=== PATIENT | female | born 1950 | race Caucasian/White ===

== ENCOUNTER 2018-12-11 09:25 | Inpatient (IN) | payer OTHER ==
[~2018-12-11] VITALS: Ht 152.4 cm; Wt 71.4 kg
[2018-12-11 09:26] VITALS: BP 120/81
[2018-12-11] MEDS ORDERED: ZOLOFT50 M1 PO (10:24)
[2018-12-11] MEDS ORDERED: BUSPIRONE HCL10 MG PO (10:25)
[2018-12-11] MEDS ORDERED: K-DUR 20 MEQ T20 MEQ PO (10:27)
[2018-12-11] MEDS ORDERED: BUMEX2 MG PO (10:27)
[2018-12-11] MEDS ORDERED: NORCO 5-325 TA1 EAC1 PO (10:28)
[2018-12-11] MEDS ORDERED: VITAMINC500 PO (10:30)
[2018-12-11] MEDS ORDERED: UNICOMPLEX M TA1 TA1 PO (10:30)
[2018-12-11] MEDS ORDERED: ASPIR 8181 MG PO (10:31)
[2018-12-11] MEDS ORDERED: COENZYME Q-1030 MG PO (10:32)
[2018-12-11] MEDS ORDERED: SIMVASTATIN80 MG PO (10:32)
[2018-12-11] MEDS ORDERED: BRILINTA90 MG PO (10:33)
[2018-12-11] MEDS ORDERED: ZETIA10 MG PO (10:33)
[2018-12-11 12:23] LABS: ABSOLUTE NEUTROPHILS 8.2 thou/uL (1.4-8.2); BASOPHILS 0.9 % (0.0-2.0); EOSINOPHILS 1.8 % (0.0-3.0); HEMATOCRIT 32.9 % (37.0-47.0); HEMOGLOBIN 10.8 gm/dL (12.0-15.0); LYMPHOCYTES 8.1 % (24.0-44.0); MCH 31.2 pg (26.0-34.0); MCHC 32.8 g/dL (28.0-37.0); MCV 95.2 fL (80.0-100.0); MONOCYTES 6.2 % (1.0-8.0); PLATELET COUNT 250 thou/uL (150-400); RBC 3.45 mil/uL (4.20-5.00); WBC 9.8 thou/uL (4.0-11.0)
[2018-12-11 12:33] LABS: CALCIUM 8.5 mg/dL (8.5-10.1); CREATININE 0.8 mg/dL (0.6-1.0); POTASSIUM 3.7 mmol/L (3.5-5.1)
[2018-12-11 12:36] LABS: APTT 40.7 Seconds (24.5-32.8); INR 1.1; PROTIME 11.6 Seconds (9.3-11.4)
[2018-12-11 12:39] LABS: ALBUMIN 1.9 g/dL (3.4-5.0); TOTAL BILIRUBIN 0.4 mg/dL (<0.1-1.0); TOTAL PROTEIN 6.1 g/dL (6.4-8.2)
[2018-12-11 12:44] LABS: URINE BILIRUBIN NEGATIVE (Negative); URINE BLOOD 3+ (Negative); URINE CLARITY CLOUDY; URINE COLOR YELLOW; URINE GLUCOSE-RANDOM* NEGATIVE (Negative); URINE KETONES TRACE (Negative); URINE LEUKOCYTES 2+ (Negative); URINE NITRITE NEGATIVE (Negative); URINE PROTEIN (DIPSTICK) 3+ (Negative); URINE SPECIFIC GRAVITY 1.025 (1.005-1.035); URINE UROBILINOGEN 0.2 E.U./dl (0.2-1.0)
[2018-12-11 12:50] LABS: YEAST Present (None Seen)
[2018-12-11 12:51] LABS: BACTERIA 1-9 Few /HPF (None Seen); CRYSTALS None Seen /LPF (None Seen); HYALINE CASTS 0-3 Few /LPF (None Seen); SQUAMOUS 0-3 Few /LPF (0-3); URINE RBC 3-10 Few /HPF (0-2)
[2018-12-11 15:03] VITALS: BP 127/87
[2018-12-11 15:47] VITALS: BP 136/91
[2018-12-11 20:00] VITALS: BP 131/86
--- NOTE | 2018-12-11 20:08 | NUR ---
Assumed care of pt at approximately 1715. Pt arrived from ED where she presented this morning with complaints of extended constipation and abdominal pain. Pt had bloody stool while in ED preparing for DC. DC was postponed and pt went for abdominal CT which showed fecal impaction with possible proctitis. Pt does complain of severe rectal pain that ranges from 5-10/10, depending on movement and positioning. On assessment pt had bloody stool intermittantly oozing out. Incontinent of bowel. Hernandez in place prior to admit. Pt's son has been at bedside and has good grasp of hospitalization hx prior to admit here. (Pt was at [facility] in [place] for approx. 1 month prior.) Pt is not yet progressing toward POC goals. Will continue to monitor and assess.
[2018-12-11 21:51] LABS: HEMATOCRIT 30.2 % (37.0-47.0); HEMOGLOBIN 9.9 gm/dL (12.0-15.0)
[2018-12-12] VITALS (7 sets, daily range): BP systolic 94–120; BP diastolic 60–81
[2018-12-12 05:49] LABS: HEMATOCRIT 29.5 % (37.0-47.0); HEMOGLOBIN 9.9 gm/dL (12.0-15.0); MCHC 33.5 g/dL (28.0-37.0); MCV 95.3 fL (80.0-100.0); PLATELET COUNT 229 thou/uL (150-400); RBC 3.09 mil/uL (4.20-5.00); RDW 21.7 % (10.5-14.5); WBC 9.3 thou/uL (4.0-11.0)
[2018-12-12 06:16] LABS: CREATININE 0.8 mg/dL (0.6-1.0); MAGNESIUM 2.4 mg/dL (1.8-2.4); POTASSIUM 3.5 mmol/L (3.5-5.1)
[2018-12-12 06:20] LABS: TROPONIN-I 0.8 ng/mL (<0.06)
[2018-12-12 06:46] LABS: ABSOLUTE NEUTROPHILS 7.9 thou/uL (1.4-8.2); ANISOCYTOSIS 2+; METAMYELOCYTES 1 %; POIKILOCYTOSIS 1+
[2018-12-12 06:47] LABS: PLATELET ESTIMATE NORMAL; POLYCHROMASIA 1+
--- NOTE | 2018-12-12 07:42 | NUR ---
PATIENT IS ALERT AND ORIENTED. PATIENT IS UP TIMES TWO PIVOT DUE TO WEAKNESS. PATIENTS PAIN IS TREATED WITH PAIN MEDICAITON. PATIENT HAS A RT PICC IV TEAM CONSULTED. PATIENT WAS ABLE TO GET ALL BUT 700ML OF THE MIRALAX DOWN. PATIENT HAD 3 SMALL BLOOD CLOTTED BM. PATEINT HAS LOTS OF PAIN IS RECTUM. PATIENT TROPONIN HAS ELEVATED OVER THE SHIFT. PROVIDER AWARE. PATIENT IS ST ON TELE. RATE IMPROVED WITH METOPROLOL. PATIENT IS ACHS ACCUCHECKS. PATIENT HAS BEEN NPO SENSE. MIDNIGHT. PATIENT IS PENDING FLEXSIG THIS AM. PATIENT IS IMPACTED. DIDGITAL REMOVAL WAS ATTEMPTED WITH SOME SUCCESS BUT PATIENT WAS UNABLE TO TOLERATE. JASSON HAS A CHRONIC GIRON FROM THE SNF IN [place], [place]. PATIENT CURRENTLY LIVE WITH SON WHOM IS DPOA. PATIENT HAS DIABETIC WOUNDS ON BILATERAL SHINS THAT WERE JUST DEBRIDED November. DRESSINGS CHANGE WOUND CARE CONSULTED. CULTURES SENT TO LAB ANTIBIOTICS STARTED. PATIENT IS RESTING COMFORTABLY IN BED. WCM. PATIENT IS PROGRESSING TO GOALS.
--- NOTE | 2018-12-12 09:38 | 2DMMODE ---
[facility] [address] [place] [address] 2 D/M-MODE ECHOCARDIOGRAM Name: KETURAHFARRUKH Room #: 359-P [facility] IN .R.#: [id number] ������������� Admission: 12/11/18 ������������� Attend Phys: Wallace Aguilar, Discharge: ��� ������������� ��� Date of : 48 Date of Service: 12/12/18 0938 �� Report #: [id number] �������� ��������������������������������������������[id number] THIS REPORT FOR: //name// APPROVED REPORT Study performed: 12/12/2018 08:04:35 EXAM: Comprehensive 2D, Doppler, and color-flow Echocardiogram Patient Location: Bedside Room #: 359 Status: routine BSA: 1.70 HR: 113 bpm BP: 116/75 mmHg Rhythm: Tachycardia Other Information Study Quality: Good Indications Atrial tachycarida. (Heart rate ranged from 80's to 150's during echo) Hx: MD, CABG, stent, PVD, Afib, DM, HTN, HLP. 2D Dimensions RVDd: 39.24 mm IVSd: 12.00 (7-11mm) LVOT Diam: 19.12 (18-24mm) LVDd: 57.55 mm PWd: 11.00 (7-11mm) Ascending Ao: 32.13 (22-36mm) LVDs: 47.17 (25-40mm) Aortic Root: 30.39 mm Volumes Left Atrial Volume (Systole) Single Plane 4CH: 70.65 mL Single Plane 2CH: 92.01 mL LA ESV Index: 50.00 mL/m2 Aortic Valve AoV Peak Collin.: 1.16 m/s AO Peak Gr.: 5.39 mmHg LVOT Max P.08 mmHg LVOT Max V: 0.88 m/s GENARO Vmax: 2.17 cm2 Mitral Valve MV Decel. Time: 124.30 ms [facility] [place] [address] 2 D/M-MODE ECHOCARDIOGRAM Name: REBOLLARFARRUKH Room #: 359-P [facility] IN .R.#: [id number] ������������� Admission: 12/11/18 ������������� Attend Phys: Wallace Aguilar, Discharge: ��� ������������� ��� Date of : 48 Date of Service: 12/12/18 0938 �� Report #: [id number] �������� ��������������������������������������������[id number] MV E Max Collin.: 1.38 m/s Pulmonary Valve PV Peak Collin.: 0.57 m/s PV Peak Gr.: 1.28 mmHg Tricuspid Valve TR Peak Collin.: 3.58 m/s RAP Estimate: 10.00 mmHg TR Peak Gr.: 51.15 mmHg PA Pressure: 61.00 mmHg Left Ventricle Left ventricle is at the upper limits of normal. Regional wall motion abnormalities are noted. There is hypokinesis of the mid to basal inferolateral segment. Mild concentric left ventricular hypertrophy. Left ventricular systolic function is moderately decreased. LVEF is 35-40%. This study is not technically sufficient to allow evaluation of the LV diastolic function. Right Ventricle The right ventricle is normal size. Atria Left atrium is severely dilated. Right atrium is mildly dilated. Aortic Valve Aortic valve is thickened and calcified but has adequate excursion. No aortic regurgitation is present. Mitral Valve Mitral valve leaflets are mildly thickened and calcified. Moderate mitral annular calcification. Moderate to severe mitral regurgitation Tricuspid Valve The tricuspid valve is normal in structure. Moderate tricuspid regurgitation. Estimated PAP is 60mmHg. Pulmonic Valve The pulmonary valve is normal in structure. Mild pulmonic regurgitation. Great Vessels The aortic root is normal in size. The ascending aorta is normal in size. IVC is normal in size and collapses <50% with inspiration. [facility] [address] [place] [address] 2 D/M-MODE ECHOCARDIOGRAM Name: KETURAHFARRUKH Room #: 359-P [facility] IN M.R.#: [id number] ������������� Admission: 12/11/18 ������������� Attend Phys: Wallace Aguilar, Discharge: ��� ������������� ��� Date of : 48 Date of Service: 12/12/18 0938 �� Report #: [id number] �������� ��������������������������������������������[id number] Pericardium There is no pericardial effusion. <Conclusion> Left ventricle is at the upper limits of normal. Mild concentric left ventricular hypertrophy. Left ventricular systolic function is moderately decreased. Regional wall motion abnormalities are noted. The right ventricle is normal size. Left atrium is severely dilated. Right atrium is mildly dilated. Aortic valve is thickened and calcified but has adequate excursion. Mitral valve leaflets are mildly thickened and calcified. Moderate mitral annular calcification. Moderate to severe mitral regurgitation Moderate tricuspid regurgitation. Estimated PAP is 60mmHg. ��������������������������������������������� <ELECTRONICALLY SIGNED> ���������������������������������������� By: Oli Jarquin MD ��������������������������������������������� 12/12/18937 7 7 Oli Jarquin MD /INF
--- NOTE | 2018-12-12 11:46 | NUR ---
Nutrition: Usual diet per son is mechanically altered ground due to poor dentition.
--- NOTE | 2018-12-12 13:56 | NUR ---
ASSESSMENT: CM REVIEWED CHART AND MET WITH PATIENT AT THE BEDSIDE. PT REPORTS SHE LIVES IN A [place] IN [facility] BUT IS PLANNING ON MOVING IN WITH HER SON EZRA WHO LIVES IN . SHE STATES HE HAS NO STEPS COMING IN THROUGH THE [place] AND HAS A FINSHED BASEMENT WITH BEDROOM WHERE SHE WOULD BE STAYING. SHE REPORTS SHE AMBULATES INDEPENDENTLY. CM SPOKE WITH SON EZRA TO VERIFY INFORMATION. HE STATES THAT THEY WERE IN THE PROCESS OF MOVING ALL OF [place] TH[place] THIS [place]. HE STATES HE WAS ESTABLISHING HER A PCP AT [facility] AND ALREADY HAS AN APPT AND WAS FOLLOWING UP WITH DR. HUNG OFFICE WELL. HE STATES HE WAS SUPPOSED TO MEET WITH [facility] TODAY. CM NOTIFIED [facility] OF REFERRAL AND TO FOLLOW PATIENT. PLANS ARE FOR PATIENT TO RETURN HOME WITH HH ([facility]) AT DISCHARGE. CM WILL CONTINUE TO FOLLOW TO ASSIST NEEDED.
--- NOTE | 2018-12-12 15:59 | NUR ---
PT HAD A FLEX SIG THIS MORN AND WAS VERY IMPACTED..SHE FELT MUCH BETTER AFTER PROCEDURE...SHE WAS GIVEN MAG CITRATE AFTER PROCEDURE WITH GOOD RESULTS OBTAINED..
[2018-12-13 03:45] VITALS: BP 119/83
--- NOTE | 2018-12-13 04:13 | NUR ---
PATIENT IS ALERT AND ORIENTED. PATIENT IS UP TIMES 2. PATIENT IS WEAK TIPICALLY INCONTIENT DUE TO LAXITIVES. LBM WAS THE 13TH. PATIENT HAS A CHRONIC GIRON FROM THE FACILITY. PATIENT IS ACHS ACCUCHECKS. PATIENT HAS AN EF OF 25-30% PER ECHO COMPLETED YESTERDAY. PATIENT TROP IS STILL ELEVATED PENIDNG MORNING LABS. PATIENT ST ON TELE. PATIENT STARTED ON PROTONIX PER PROVIDER. PATIENT REFUSED BATH WAS TO TIRED FROM BUSY DAY. PATIENT IS RESTING COMFORTABLY IN BED. PATIENT DENIES PAIN. WCM. PATIENT IS PROGESSING TO GOALS.
--- NOTE | 2018-12-13 06:15 | NUR ---
PROVIDER AWARE OF LOW URINE OUTPUT NO ORDERS RECIVED
[2018-12-13 07:31] VITALS: BP 112/71
--- NOTE | 2018-12-13 10:47 | EKG ---
[place] [address] [address] [address] ELECTROCARDIOGRAM REPORT Name: REBOLLARFARRUKH Room #: 359-P ADM IN M.R.#: [id number] ������������������ Admission: 12/11/18 ������������������ Attend Phys: Wallace Aguilar MD Discharge: ������������������ Date of : 48 Report #: [id number] ����������������������������������������������������������������� [id number] THIS REPORT FOR: //name// [facility] ED Test Date: 2018-12-11 Test Time: 15:03:52 Pat Name: FARRUKH REBOLLAR Department: Room: [facility] Gender: F Acute Dialysis Registered Nurse: : 1950 Requested By: Leigh Ann Alfaro Order Number: [id number] MD: Rey Juarez Measurements Intervals [place]s Rate: 123 P: -72 MO: 106 QRS: -11 QRSD: 117 T: 192 QT: 307 QTc: 439 Interpretive Statements Sinus or ectopic atrial tachycardia Atrial premature complex Incomplete left bundle branch block No previous ECG available for comparison Electronically Signed On 12-13-2018 10:47:18 CDT by Rey Juarez [email or web address] ��������������������������������������������� <ELECTRONICALLY SIGNED> ���������������������������������������� By: Rey Juarez MD, LOCATED WITHIN [facility] ��������������������������������������������� 12/13/18 1047 1503 1503 Rey Juarez MD, [facility] /EPI
[2018-12-13 17:08] VITALS: BP 124/85
[2018-12-13 20:00] VITALS: BP 116/79
--- NOTE | 2018-12-14 03:06 | NUR ---
PATIENT IS PROGRESSING IN HER CARE PLAN. VITAL SIGNS STABLE WITH PATIENT HAVING NO COMPLAINTS OF PAIN OR NAUSEA. FULLY ORIENTED, PATIENT IS ABLE TO PARTICIPATE IN CARE AND CALL APPROPRIATELY FOR NEEDS. PATIENT HAS HAD MULTIPLE EPISODES OF FECAL INCONTINENCE REQUIRING CLEAN UP AND SKIN CARE. FREQUENT TURNS PROVIDED. LOW OUTPUT THROUGH CATHETER WITH NURSE TO BLADDER SCAN EARLY THIS MORNING TO CHECK FOR RETENTION. CONTINUE PLAN OF CARE.
[2018-12-14 04:00] VITALS: BP 126/85
[2018-12-14 04:43] LABS: HEMATOCRIT 30.1 % (37.0-47.0); HEMOGLOBIN 9.8 gm/dL (12.0-15.0); MCHC 32.7 g/dL (28.0-37.0); RBC 3.16 mil/uL (4.20-5.00); WBC 7.9 thou/uL (4.0-11.0)
[2018-12-14 05:02] LABS: CALCIUM 7.8 mg/dL (8.5-10.1); CREATININE 0.8 mg/dL (0.6-1.0); MAGNESIUM 2.2 mg/dL (1.8-2.4); POTASSIUM 4.5 mmol/L (3.5-5.1)
[2018-12-14 08:16] VITALS: BP 125/87
[2018-12-14 12:43] LABS: % SATURATION 30 % (20-39); IRON 50 ug/dL (50-170); TIBC 164 ug/dL (250-450)
--- NOTE | 2018-12-14 12:48 | HC ---
[facility] [place] [address] [address] CONSULTATION Name: AFRRUKH REBOLLAR Room #: 359-P ADM IN M.R.#: [id number] Admission: 12/11/18 ������������������ Attend Phys: Wallace Aguilar MD Discharge: ������������������ Date of : 48 Report #: [id number] THIS REPORT FOR: //name// CC: FAM unknown Wallace Aguilar DATE OF SERVICE: 12/13/2018 ENDOCRINE CONSULTATION LOCATION: Room 359. Patient of Dr. Aguilar. A 68-year-old white female admitted for GI bleed and constipation. Historically, the patient states she was told of hypothyroidism approximately 1 year ago and begun on increasing doses of L-Thyroxine, 6 months ago was increased to 125 mcg per day. The patient is not aware of any thyroid function studies since that time and has not been told whether her tests were normal. The patient has no current signs or symptoms of thyroid disease except for her GI distress. She has no known family history of thyroid problems. She has been taking her medication correctly without conflicting concurrent medications. Otherwise, there is no pertinent endocrine history to report at this time. LABORATORY DATA: From her recent labs, free T4 is 1.2 and TSH 14. PHYSICAL EXAMINATION: GENERAL: A thin 68-year-old white female, in no acute distress. The patient is alert and oriented x 3. VITAL SIGNS: Height is reported to be 5 feet 2 inches or 5 feet 1 inch, weight 161 pounds, heart rate 110, blood pressure 112/71. SKIN: Somewhat thin and doughy. Deep tendon reflexes are 2+ and equal. The thyroid is slightly enlarged on the left. It has a smooth contour and moves well with deglutition. There is no nodularity or adenopathy present. The remainder of the exam is euthyroid. ASSESSMENT: Hypothyroidism, on inadequate replacement. It is, however, unlikely that this contributed to the patient's current gastrointestinal distress and fecal impaction as the actual free T4 level in the blood is still within normal limits. PLAN: 1. I have discussed all of the above with the patient and her son. 2. We will increase replacement to 150 mcg per day and again ensured it is not given concurrently with potentially conflicting substances. 3. Reassessment of thyroid function levels will need to be done in [address] [address] CONSULTATION Name: FARRUKH REBOLLAR Room #: 359-P [facility] IN M.R.#: [id number] Admission: 12/11/18 ������������������ Attend Phys: Wallace Aguilra MD Discharge: ������������������ Date of : 48 Report #: [id number] approximately 6 weeks from dosage readjustment; however, interim levels may be checked to ensure that the medication level is changing appropriately. Thank you very much for this consultation. I will continue to follow the patient with you for management of thyroid disease. ��������������������������������������������� <ELECTRONICALLY SIGNED> ���������������������������������������� By: Matthieu Pozo MD ��������������������������������������������� 12/14/18 1248 1331 1928 Matthieu Pozo MD /bradly
[2018-12-14 13:11] LABS: FOLIC ACID 10.4 ng/mL (8.6-58.9)
[2018-12-14 15:21] VITALS: BP 106/58
[2018-12-14 16:46] VITALS: BP 81/52
--- NOTE | 2018-12-14 19:19 | NUR ---
PATIENT CONT TO REST IN BED AT THIS TIME. HAD DIARRHEAL STOOLS FOUR TIMES TODAY. SHE IS NOW SLEEPING.. WILL CONT WITH PLAN OF CARE.
[2018-12-14 19:33] VITALS: BP 95/59
[2018-12-15 03:01] VITALS: BP 105/70
--- NOTE | 2018-12-15 04:58 | NUR ---
PATIENT IS PROGRESSING IN HER CARE PLAN. VITAL SIGNS STABLE WITH PATIENT HAVING NO COMPLAINTS OF PAIN OR NAUSEA. FULLY ORIENTED, PATIENT IS ABLE TO PARTICIPATE IN CARE AND CALL EFFECTIVELY FOR NEEDS. PATIENT HAS HAD MULTIPLE EPISODES OF FECAL INCONTINENCE REQUIRING SKIN CARE. FREQUENTLY TURNED WITH BARRIER CREAM APPLIED. NO EVIDENCE OF BLEEDING NOTED. CONTINUE PLAN OF CARE.
[2018-12-15 05:32] LABS: HEMATOCRIT 32.5 % (37.0-47.0); HEMOGLOBIN 10.7 gm/dL (12.0-15.0); MCH 31.5 pg (26.0-34.0); MCHC 32.9 g/dL (28.0-37.0); MCV 95.7 fL (80.0-100.0); RBC 3.4 mil/uL (4.20-5.00); RDW 21.4 % (10.5-14.5); WBC 8.6 thou/uL (4.0-11.0)
[2018-12-15 05:54] LABS: CALCIUM 8.5 mg/dL (8.5-10.1); CREATININE 0.8 mg/dL (0.6-1.0); POTASSIUM 4.6 mmol/L (3.5-5.1)
--- NOTE | 2018-12-15 07:44 | HC ---
[facility] [address] [address] CONSULTATION Name: FARRUKH REBOLLAR Room #: 359-P ADM IN M.R.#: [id number] Admission: 12/11/18 ������������������ Attend Phys: Wallace Aguilar MD Discharge: ������������������ Date of : 48 Report #: [id number] THIS REPORT FOR: //name// CC: FAM unknown Wallace Aguilar DATE OF SERVICE: 12/12/2018 CHIEF COMPLAINT: Bilateral lower extremity ulcerations. HISTORY OF PRESENT ILLNESS: This is a 68-year-old female patient who was admitted to the hospital through the Emergency Department of lower abdominal pain and severe constipation. Additionally, she has had chronic ulcerations to her lower legs, has been followed and treated in [place], [place], has recently transferred to [place]. She was scheduled to see us in the wound clinic, but due to her abdominal pain, she was taken to the Emergency Department, and admitted to the hospital. I have been asked to see with regard to wound care. The patient has a history of peripheral arterial disease. She has undergone angiography with stent placement. The exact details of her anatomy are unknown at this time. The patient states that she previously had had a lot of pain in her legs, but that has improved, and she has had some debridement performed and things have been improving slowly. PAST MEDICAL HISTORY: Positive for type 2 diabetes mellitus, atrial fibrillation, congestive heart failure, anxiety, lower extremity cellulitis, coronary artery disease, and peripheral vascular disease. SOCIAL HISTORY: The patient is a former smoker. Admits to occasional alcohol use. FAMILY HISTORY: Noncontributory. MEDICATIONS: The patient's current medications include K-Dur, Zoloft, BuSpar, Bumex, [place], vitamin C, aspirin, Coenzyme Q10, Zetia, and Brilinta. ALLERGIES: PENICILLIN AND ARTIFICIAL SWEETENER. REVIEW OF SYSTEMS: CONSTITUTIONAL: The patient denies fever, chills, or weight loss. NEUROLOGICAL: The patient complains of generalized weakness and inability to walk due to generalized weakness, but denies any focal weakness, numbness, or tingling. EYES: The patient denies visual changes, redness, or drainage. ENT: The patient denies earache, nasal drainage, sore throat. CARDIOVASCULAR: The patient denies chest pain, palpitation, or diaphoresis. PULMONARY: The patient denies cough or shortness of breath. [address] [address] CONSULTATION Name: FARRUKH REBOLLAR Room #: 359-P [facility] IN .R.#: [id number] Admission: 12/11/18 ������������������ Attend Phys: Wallace Aguilar MD Discharge: ������������������ Date of : 48 Report #: [id number] GASTROINTESTINAL: The patient denies nausea, vomiting, diarrhea. Does have abdominal pain and constipation. ORTHOPEDIC: The patient complains ulcerations of bilateral lower extremities, more so on the left than on the right. Other systems in a 14-point review of systems are negative. PHYSICAL EXAMINATION: VITAL SIGNS: At this time include temperature 97.9, pulse 129, respiratory rate of 17, blood pressure 119/74. GENERAL: This is a chronically ill-appearing female patient who appears to be in no distress. HEENT: Head normocephalic. Nose and throat are clear. NECK: Supple. HEART: Irregular without murmur. ABDOMEN: Soft. Bowel sounds are present. EXTREMITIES: Lower extremities demonstrate palpable distal pulses. She has multiple ulcerations across the lower legs bilaterally. She has 2+ edema. There is some evidence of some epithelization and some eschar present. Overall, there is some evidence of new epithelialization as well. These are not overtly infected at this time. NEUROLOGIC: The patient is alert and oriented and appropriate. Does move all 4 extremities spontaneously. LABORATORY DATA: Includes sodium 143, potassium 3.5, chloride 108, CO2 27, BUN 16, creatinine 0.8, glucose 154. Albumin is very low at 1.9. White blood cell count is 9.3 with hemoglobin of 9.9. CLINICAL IMPRESSION: 1. Venous type ulcerations to bilateral lower extremities. 2. Peripheral arterial disease, status post percutaneous intervention both lower extremities, details unavailable for my review at this time. 3. Diabetes mellitus. 4. Atrial fibrillation. 5. Severe protein-calorie malnutrition. RECOMMENDATIONS: At this point in time, we will recommend topical Silvadene with Xeroform gauze followed by ABD, Kerlix, and Monty wraps. We have peeled away some of the looser skin and some of the superficial eschar on the wound edges. We will continue to provide local care and elevate and would anticipate that these will gradually close. She will need aggressive nutritional support to maximize wound healing. She has significant weakness and would recommend [address] [address] CONSULTATION Name: FARRUKH REBOLLAR Room #: 359-P [facility] IN M.R.#: [id number] Admission: 12/11/18 ������������������ Attend Phys: Wallace Aguilar MD Discharge: ������������������ Date of : 48 Report #: [id number] evaluation by PT and OT and consideration of rehab following her acute hospitalization. I appreciate being asked to see her in consultation. ��������������������������������������������� <ELECTRONICALLY SIGNED> ���������������������������������������� By: Jake Adames MD ��������������������������������������������� 12/15/18 0744 1836 0140 Jake Adames MD /nt
[2018-12-15 08:35] VITALS: BP 131/81
--- NOTE | 2018-12-15 12:15 | EKG ---
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: MATTHEW : 1950 Requested By: Rey Juarez Order Number: [id number] MD: Omar Cody Measurements Intervals [place] Rate: 122 P: -51 NE: 138 QRS: -29 QRSD: 117 T: 200 QT: 320 QTc: 456 Interpretive Statements Sinus or ectopic atrial tachycardia Nonspecific intraventricular conduction delay Repol abnrm suggests ischemia, anterolateral Compared to ECG 12/11/2018 15:03:52 Intraventricular conduction delay now present Early repolarization now present Possible ischemia now present Atrial premature complex(es) no longer present Left bundle-branch block no longer present Electronically Signed On 12-15-2018 12:14:55 CDT by Omar Cody [email or web address] ��������������������������������������������� <ELECTRONICALLY SIGNED> ���������������������������������������� By: Omar Cody MD ��������������������������������������������� 12/15/18 1214 3 3 Omar Cody MD /EPI
--- NOTE | 2018-12-15 15:20 | NUR ---
ON-GOING ASSESSMENT: CM REVIEWED CHART AND MET WITH PT AND HER SON EZRA AT THE BEDSIDE. OT IS RECOMMENDING [facility]. CM DISCUSSED THIS WITH PT AND HER SON AND HE STATES THAT PATIENT WAS JUST RECENTLY AT [facility] AND RAN INTO HER COPAY DAYS BEFORE COMING HERE. CM DISCUSSED THAT IS PATIENT IS REQUIRING [facility] AND CHOSES SNF SHE WOULD STILL LIKELY BE IN COPAY DAYS. IF PATIENT QUALIFIES FOR ACUTE REHAB SHE WOULD LIKELY NO HAVE COPAY. PT STATING SHE IS UNSURE HOW SHE FEELS AT THIS POINT AND REALLY WOULD LIKE TO RETURN HOME WITH HH BUT NOT SURE SHE IS STRONG ENOUGH. PT STATES SHE WANTS TO SEE HOW SHE PROGRESSES AND WILL THINK ABOUT IT. CM ALSO LEFT LIST OF [facility] SNF LIST IN PATIENTS ROOM FOR HER TO REVIEW IF SHE DOES DECIDE TO DO SNF AND MAY HAVE A COPAY. CM WILL CONTINUE TO FOLLOW TO ASSIST NEEDED.
[2018-12-15 16:30] VITALS: BP 122/80
[2018-12-15 19:15] VITALS: BP 123/78
--- NOTE | 2018-12-15 19:48 | NUR ---
CDIFF WAS NEGATIVE. TAKEN OFF ISOLATION. HAD FEWER BMS TODAY. RESPIRATIONS ARE NON LABORED. WILL CONT WITH PLAN OF CARE.
[2018-12-16] VITALS (10 sets, daily range): BP systolic 75–126; BP diastolic 41–79
--- NOTE | 2018-12-16 03:20 | NUR ---
PATIENT IS PROGRESSING IN HER CARE PLAN. VITAL SIGNS STABLE WITH PATIENT HAVING NO COMPLAINTS OF PAIN OR NAUSEA. FULLY ORIENTED, PATIENT IS ABLE TO CALL APPROPRIATELY FOR NEEDS AND PARTICIPATE IN CARE PLAN. FREQUENT TURNS AND SKIN CARE TO PROTECT SKIN FROM FREQUENT INCONTINENCE OF BOWEL. PATIENT HAS BEEN ABLE TO SIT UP AT BEDSIDE WHICH IS AN IMPROVEMENT OVER PREVIOUS SHIFTS WITH HER. CONTINUE PLAN OF CARE.
[2018-12-16 05:40] LABS: HEMATOCRIT 30.3 % (37.0-47.0); MCH 31.3 pg (26.0-34.0); MCV 94.7 fL (80.0-100.0); RBC 3.2 mil/uL (4.20-5.00); RDW 20.6 % (10.5-14.5); WBC 9.5 thou/uL (4.0-11.0)
[2018-12-16 05:52] LABS: CREATININE 0.6 mg/dL (0.6-1.0); MAGNESIUM 1.7 mg/dL (1.8-2.4); POTASSIUM 3.9 mmol/L (3.5-5.1)
--- NOTE | 2018-12-16 15:52 | NUR ---
on-going assessment: CM REVIEWED CHART AND MET WITH PATIENT AT THE BEDSIDE. PT HAD STRESS TEST TODAY. PT REPORTS SHE DOES FEEL SHE NEEDS TO GO SOMEWHERE FOR REHAB BEFORE RETURNING TO HER SONS HOME. PT IS INTERESTED IN [facility]. CM NOTIFIED PATIENT THAT [facility] IS AT [facility] AND MAY NOT HAVE A BED AVAILABLE BUT THERE ARE OTHER ACUTE REHABS IN THE AREA. PT STATED SHE WOULD DISCUSS WITH HER SON. CM REACHED OUT TO PATIENTS SON EZRA AND DISCUSSED OTHER ACUTE REHABS WELL PATIENT MAY HAVE A COPAY FOR ACUTE REHAB/SNF AND THAT COULD BE DETERMINED MORE WHEN REFERRAL IS SENT. HE STATES HE IS VISITING HIS MOTHER THIS EVENING AND THEY WILL DISCUSS OPTIONS AND GET BACK TO CM IN THE AM.
--- NOTE | 2018-12-16 18:40 | NUR ---
HAD STRESS TEST DOEN EARLIER TODAY. STARTED ON ANTI DIARRHEAL. NOT EFFECTIVE YET. DID COMPLAIN OF PAIN ONCE AND PRN PAIN MED ADMINISTERED AND IT WAS EFFECTIVE. SHE IS PLEASANT WITH CARE. CONT TO HAVE DIARRHEA KEPT CLEAN AND DRY. WILL CONT WITH PLAN OF CARE.
[2018-12-17] VITALS (7 sets, daily range): BP systolic 83–128; BP diastolic 46–68
--- NOTE | 2018-12-17 04:30 | NUR ---
PATIENT IS PROGRESSING SLOWLY IN HER CARE PLAN. PATIENT HAD NO COMPLAINTS OF PAIN OR NAUSEA. AT 1999 VITALS PATIENT EXHIBITED ASSYMPTOMATIC HYPOTENSION. NURSE RECEIVED 300 CC BOLUS FROM SUPERVISOR OPENING AND PICKING WHICH PATIENT RESPONDED FAVORABLY TO. ALL OTHER VITAL SIGNS STABLE. FULLY ORIENTED, PATIENT IS ABLE TO PARTICIPATE IN CARE AND CALL APPROPRIATELY FOR NEEDS. FREQUENT TURNS TO PROTECT SKIN WITH WOUND DRESSINGS REMAINING C/D/I. PATIENT HAD NO BOWEL MOVEMENTS OVER SHIFT. PATIENT HAS EXPRESSED A WILLINGNESS TO "WORK HARDER" WITH PHYSICAL THERAPY AND NURSING STAFF TO ACHIEVE HER GOALS. CONTINUE PLAN OF CARE.
[2018-12-17 05:47] LABS: HEMATOCRIT 30.4 % (37.0-47.0); HEMOGLOBIN 10.2 gm/dL (12.0-15.0); MCH 31.6 pg (26.0-34.0); MCHC 33.5 g/dL (28.0-37.0); MCV 94.5 fL (80.0-100.0); RBC 3.22 mil/uL (4.20-5.00); RDW 20.3 % (10.5-14.5); WBC 7.9 thou/uL (4.0-11.0)
[2018-12-17 06:04] LABS: CALCIUM 7.5 mg/dL (8.5-10.1); CREATININE 0.7 mg/dL (0.6-1.0); MAGNESIUM 1.6 mg/dL (1.8-2.4); POTASSIUM 4.1 mmol/L (3.5-5.1)
--- NOTE | 2018-12-17 08:12 | NUR ---
on-going assessment: CM REVIEWED CHART AND MET WITH PATIENT AT THE BEDSIDE. PT REPORTS HER SON VISITED LAST TIME AND SHE SPOKE WITH HIM THIS AM AND THEY WANT TO LOOK INTO ACUTE REHAB OPTIONS. SHE STATES SHE PREFERS [facility] BUT IF THEY MAY NOT HAVE A BED SHE WANTED A REFERRAL SENT TO [facility]. CM FAXED REFERRAL AND NOTIFIED [facility] LIABENIGNO LEVI. CM WILL CONTINUE TO FOLLOW TO ASSIST NEEDED.
--- NOTE | 2018-12-17 13:48 | NUR ---
AAOX4 PLEASANT AND COOPERTIVE. LOWER EXTREMITY WOUNDS DRESSING CHANGE PER WOUND CARE NURSE. WOUNDS APPEAR TO HEALING WELL. LEGS WRAPPED WITH KERLIX AND SKYE. PROGRESSING SLOWLY WITH OT AND PT. GOOD APPETITE. REMAINS ON ROOM AIR.
[2018-12-18 04:00] VITALS: BP 119/67
--- NOTE | 2018-12-18 05:22 | NUR ---
Assumed pt care at 1900.Pt A/OX4,SBP 83/43 @ 1900,PO fluids encouraged and rechecked Bp 109/61,HR 66.Denies pain on assessment,no SOA. Pt is up with max assist. Dressings in place on BLE C/D/I. PICC line in place on RUE and patent. Fall precautions in place,pt resting with no distress noted at this time will continue to monitor pt.
[2018-12-18 08:01] VITALS: BP 126/64
--- NOTE | 2018-12-18 12:36 | NUR ---
on-going assessment: CM REVIEWED CHART AND RECEIVED A CALL FROM [facility] WHO STATES THAT [facility] HAS DENIED INPATIENT ACUTE REHAB AND A PEER TO PEER CAN BE COMPLETED BY CALLING [phone] REF#[id number]. [facility] STATED THAT INSURANCE STATES PATIENT IS MORE APPROPRIATE FOR SNF. CM NOTIFIED ATTENDING WHO STATES TO PURSUE SNF OPTIONS. CM MET WITH PATIENT AND HER SON AND NOTIFIED THEM OF DENIAL FOR ACUTE INPATIENT. THEY ARE REVIEWING SNF LIST AND WILL CONTACT CM TO SEND REFERRALS BUT WANT TO RESEARCH AND DISCUSS A FEW PLACES.
[2018-12-18 16:42] VITALS: BP 102/52
[2018-12-18 19:45] VITALS: BP 106/61
[2018-12-19 04:56] VITALS: BP 131/68
--- NOTE | 2018-12-19 05:54 | NUR ---
PATIENT IS ALERT AND ORIENTED. PATIENT IS UP TIMES 2. PATIENT IS ENCOURAGED TO GET UP TO CHAIR. PATIENT IS INCONTIENT. PATIENT IS ON ROOM AIR. PATIENT HAS A CHRONIC GIRON FROM SNF. PLAN IS TO CONTINUE MEDS SEE STAFF MINE WARFARE OFFICER OUT PT IN 3 MONTHS. PATIENTS LBM IS TODAY. PATIENT IS NSR ON TELE OCCATIONALY TACHY. PATIENT DENEIS PAIN. PATIENT IS RESTING COMFORTABLY IN BED. WCN.
[2018-12-19 07:32] VITALS: BP 134/76
--- NOTE | 2018-12-19 07:35 | NUR ---
ON-going assessment: CARLOS REVIEWED CHART AND RECEIVED A VM FROM PATIENTS SON STATING HE TOURED [facility] AND SPOKE WITH ADMISSIONS AND REALLY LIKED IT AND ALSO SPOKE WITH HIS MOTHER ABOUT IT AND THEY WANTED A REFERRAL SENT. CM FAXED REFERRAL AND NOTIFIED [facility] TO SEEK AUTH IF THEY CAN ACCEPT PT.
[2018-12-19] MEDS ORDERED: SYNTHROID75 MCG PO (08:52)
[2018-12-19] MEDS ORDERED: COZAAR 25 MG TA25 M2 PO (08:52)
[2018-12-19] MEDS ORDERED: SSD CREAM 1% 5050 GM TOP (08:52)
[2018-12-19] MEDS ORDERED: BUMETANIDE 1 MG1 M1 PO (08:52)
[2018-12-19] MEDS ORDERED: COREG6.25 MG PO (08:52)
[2018-12-19] MEDS ORDERED: SENNA-TIME S T1 EACH PO (08:52)
[2018-12-19] MEDS ORDERED: PROTONIX40 M1 PO (08:52)
[2018-12-19] MEDS ORDERED: MIRALAX17 GM PO (08:52)
[2018-12-19] MEDS ORDERED: PACERONE 200 M200 M1 PO ×2 (08:52)
[2018-12-19] MEDS ORDERED: SIMETHICON CHEW80 M1 PO (08:59)
[2018-12-19] MEDS ORDERED: NOVOLOG100 UNIT/1 SUBQ (08:59)
[2018-12-19] MEDS ORDERED: LEVAQUIN 750 M750 MG PO (09:21)
--- NOTE | 2018-12-19 10:11 | NUR ---
WOUND CARE FOLLOW UP; ROUNDING WITH REANNA LINUX SUPPORT ENGINEER AND [employer] PROFESSIONAL SPORTS SCOUT. BILATERAL LE WOUNDS VISUALIZED, HAS MULIPLE WOUNDS AT VARIOUS STAGES OF HEALING. MILD COMPRESSION IS SUFFICENT AT THIS TIME. NO S/S OF INFECTION AT THIS TIME. GRANULATION TISSUE PRESENT. RECOMMENDATION; CONTINUE PLAN OF CARE, NO CHANGES NEEDED. DISCUSSED WITH RN
[2018-12-19 16:43] VITALS: BP 121/68
[2018-12-19 19:18] VITALS: BP 112/68
--- NOTE | 2018-12-20 00:53 | NUR ---
ASSUMED CARE OF PATIENT AT 1900. VSS, AFEBRILE. RESTING IN BED. CONTINUES TO HAVE LOOSE STOOLS, PM STOOL SOFTENER HELD PER HER REQUEST. REPOSITIONING Q2 HOURS, EDUCATION GIVEN REGARDING SKIN INTEGRITY. AWAITING DISCHARGE TO [facility].
[2018-12-20 03:55] VITALS: BP 110/61
[2018-12-20 07:52] VITALS: BP 133/81
[2018-12-20 15:58] VITALS: BP 108/63
--- NOTE | 2018-12-20 18:33 | NUR ---
Assumed pt care this am, VS have been stable. Wound dressings have been changed. Turned Q2 through out the shift. Loose stools were noted fist thing in the morning and once late afternoon, sool softeners not given. Colleen from [facility] called for the opening, faxed newly dated DC orders and summary to [facility] [phone] for scheduling for transport. [facility] had called back that admission is rescheduled for tomorrow due to a late dc on their end, Colleen will call the unit back for the time of apple picking supervisor tomorrow am, there in no need to refax the dc summary from our end. FC draining light yellow urine, pt was wanting to remove the FC, informed the pt of goals that need to be met prior to removal and the purpose at this point. Pt has refused to get out of bed at this point. Poor nutritional intake has been noted and would only take her supplements. Though fluid and nutritional intake has been encouraged. POC followed, no signs or verbalizations of distress have been noted.
[2018-12-20 19:12] VITALS: BP 84/44
[2018-12-20 22:20] VITALS: BP 111/64
[2018-12-21] VITALS (7 sets, daily range): BP systolic 83–131; BP diastolic 49–71
--- NOTE | 2018-12-21 01:08 | NUR ---
PT LYING IN BED. DENIES PAIN. RESTING COMFORTABLY. NO NEEDS VOICED. CALL LIGHT WITHIN REACH. WILL CONTINUE TO PROVIDE FREQUENT OBSERVATION.
--- NOTE | 2018-12-21 11:48 | NUR ---
pt calm, eyes closed intermittently, watching tv. able to wiggle toes to command, states her sharp knee pain is 12/10 and that she cannot move her leg. forehead furrowed. resp even and unlabored. pain med given- see mars.
--- NOTE | 2018-12-21 13:01 | NUR ---
CALL PLACED TO [facility] #[phone] REGARDING TRANSFER, PREARRANGED BY [facility], TO [facility]. SPOKE WITH ALESSANDRA GAMBINO LPN FUR MACHINE OPERATOR AT [facility]. SHE STATED, "ALL BEDS ARE FILLED. YESTERDAY THERE WERE FIVE PATIENTS FOR ADMISSION AND THE FIRST THREE WITH COMPLETED PAPERWORK OBTAINED THE AVAILABLE BEDS. THERE SHOULD BE DISCHARGES TOMORROW." AN AYALA CHARGE NURSE AND PT UDATED ON TRANSFER STATUS.
--- NOTE | 2018-12-22 03:04 | NUR ---
ASSUMED PT CARE AROUND 1900. A&OX4. BP LOW AT BEGINNING OF SHIFT. PT ASYMPTOMATIC, DENIED ANY DIZZINESS. NOTIFIED BUSINESS BROKER TECHNICAL SOLUTIONS DIRECTOR FOR HOSPITALIST. BP HAS SINCE IMPROVED. PT SLEPT MOST OF THE NIGHT. RESP EVEN AND UNLABORED. CALLS OUT APPROPRIATELY. DOES NOT LIKE TO BE REPOSITIONED IN BED. GIRON TO DD. EXTREMITIES ELEVATED ON PILLOWS. BLE DRESSING C/D/I. FALL PRECAUTIONS IN PLACE. PROGRESSING TOWARD POC GOALS. WILL CONTINUE TO MONITOR FURTHER.
[2018-12-22 04:45] VITALS: BP 111/63
[2018-12-22 08:18] VITALS: BP 130/65
[2018-12-22 11:43] VITALS: BP 91/47
--- NOTE | 2018-12-22 12:59 | NUR ---
on-going assessment: CARLOS REVIEWED CHART AND SPOKE WITH ROLLY FROM [facility]. SHE REPORTS THEY HAD AUTH FOR OVER THE WEEKEND BUT NO BED. SHE STATES THEY NOW HAVE A BED BUT NEED TO RENEW THE AUTH. CARLOS REACHED OUT TO PT/OT TO SEE IF PATIENT COULD BE SEEN FIRST THING THIS AM. CARLOS ALSO [id number] KELLY AT [facility] [phone] AND GOT AUTH FOR SNF AUTH#[id number]. CARLOS NOTIFIED ROLLY AND JAYME AT [facility] AND THEY ARRANGED TRANSPORTATION FOR PATIENT FOR 1500. CARLOS NOTIFIED PT AND HER DAUGHTER IN [employer] [place] (DUE TO HER REQUEST SINCE SON IS AT WORK). PT WILL HAVE 167.50 COPAY PER DAY AND PT AND FAMILY ARE AWARE AND AGREEABLE WITH THIS. CARLOS NOTIFIED SUPERVISOR WIRE ROPE FABRICATION TO UPDATE CHART COPY. PT REPORTS NO FURTHER QUESTIONS FROM CARLOS.
--- NOTE | 2018-12-22 16:31 | NUR ---
Patient discharged and left unit with transporter in wheelchair to [facility] at 1625 this afternoon. Report called to [facility]. Patient's [id number] helped patient collect all belongings. Chart copy with lyft driver. PICC line dc'd per Dr. Bui. Telemetry dc'd. Wound care completed, dressings changed and pictures done before discharge.
== END 2018-12-22 16:24 | DRG 377 ==
LOC: ER 09:25 → 3W 14:26 → EROBS 14:26 → 3W 15:48
PROVIDERS: Nurse Practitioner; ADMIT Internal Medicine
PROC: 02HV33Z Insertion of Infusion Device into Superior Vena Cava, Percutaneous Approach (ICD-10-PCS; principal; 2018-12-11)
PROC: 0DJD8ZZ Inspection of Lower Intestinal Tract, Via Natural or Artificial Opening Endoscopic (ICD-10-PCS; 2018-12-12)
DX: K57.31 Diverticulosis of large intestine without perforation or abscess with bleeding (principal); E43 Unspecified severe protein-calorie malnutrition; N39.0 Urinary tract infection, site not specified; L97.819 Non-pressure chronic ulcer of other part of right lower leg with unspecified severity; L97.829 Non-pressure chronic ulcer of other part of left lower leg with unspecified severity; K56.7 Ileus, unspecified; I47.1 Supraventricular tachycardia; K63.3 Ulcer of intestine; I42.9 Cardiomyopathy, unspecified; I50.22 Chronic systolic (congestive) heart failure; L03.116 Cellulitis of left lower limb; L03.115 Cellulitis of right lower limb; E11.51 Type 2 diabetes mellitus with diabetic peripheral angiopathy without gangrene; E11.622 Type 2 diabetes mellitus with other skin ulcer; I25.10 Atherosclerotic heart disease of native coronary artery without angina pectoris; F32.9 Major depressive disorder, single episode, unspecified; E78.5 Hyperlipidemia, unspecified; I11.0 Hypertensive heart disease with heart failure; E03.9 Hypothyroidism, unspecified; T50.905A Adverse effect of unspecified drugs, medicaments and biological substances, initial encounter; F41.9 Anxiety disorder, unspecified; I48.91 Unspecified atrial fibrillation; Z60.2 Problems related to living alone; E83.42 Hypomagnesemia; I87.2 Venous insufficiency (chronic) (peripheral); Z68.30 Body mass index [BMI] 30.0-30.9, adult; Z95.1 Presence of aortocoronary bypass graft; Z95.818 Presence of other cardiac implants and grafts; I25.2 Old myocardial infarction; Y92.89 Other specified places as the place of occurrence of the external cause; Z87.891 Personal history of nicotine dependence; Z88.0 Allergy status to penicillin; Z79.82 Long term (current) use of aspirin; Z79.899 Other long term (current) drug therapy; Z91.018 Allergy to other foods; Z90.49 Acquired absence of other specified parts of digestive tract; Z71.6 Tobacco abuse counseling
CPT/HCPCS: 10879; 62110; 62900; 70005

== ENCOUNTER 2019-03-04 14:21 | Emergency (ER) | payer OTHER ==
[~2019-03-04] VITALS: Ht 162.6 cm; Wt 84.8 kg
[~2019-03-04 14:21] MED LIST: ASPIR 8181 MG PO; BRILINTA90 MG PO; BUMETANIDE 1 MG1 M1 PO; BUMEX2 MG PO; BUSPIRONE HCL10 MG PO; COENZYME Q-1030 MG PO; COREG6.25 MG PO; COZAAR 25 MG TA25 M2 PO; K-DUR 20 MEQ T20 MEQ PO; LEVAQUIN 750 M750 MG PO; MIRALAX17 GM PO; NORCO 5-325 TA1 EAC1 PO; NOVOLOG100 UNIT/1 SUBQ; PACERONE 200 M200 M1 PO; PROTONIX40 M1 PO; SENNA-TIME S T1 EACH PO; SIMETHICON CHEW80 M1 PO; SIMVASTATIN80 MG PO; SSD CREAM 1% 5050 GM TOP; SYNTHROID75 MCG PO; UNICOMPLEX M TA1 TA1 PO; VITAMINC500 PO; ZETIA10 MG PO; ZOLOFT50 M1 PO
[2019-03-04 16:09] LABS: ABSOLUTE NEUTROPHILS 4.8 thou/uL (1.4-8.2); BASOPHILS 0.9 % (0.0-2.0); EOSINOPHILS 5.4 % (0.0-3.0); HEMATOCRIT 30.2 % (37.0-47.0); HEMOGLOBIN 9.7 gm/dL (12.0-15.0); LYMPHOCYTES 16.2 % (24.0-44.0); MCH 30.2 pg (26.0-34.0); MCHC 31.9 g/dL (28.0-37.0); MCV 94.5 fL (80.0-100.0); MONOCYTES 6.4 % (1.0-8.0); PLATELET COUNT 250 thou/uL (150-400); POLYS 71.1 % (36.0-66.0); WBC 6.7 thou/uL (4.0-11.0)
[2019-03-04 16:16] LABS: CALCIUM 8.7 mg/dL (8.5-10.1); CREATININE 1.2 mg/dL (0.6-1.0); POTASSIUM 3.9 mmol/L (3.5-5.1)
[2019-03-04 16:22] LABS: ALBUMIN 3.2 g/dL (3.4-5.0); TOTAL BILIRUBIN 0.3 mg/dL (<0.1-1.0); TOTAL PROTEIN 6.8 g/dL (6.4-8.2)
[2019-03-04 17:02] LABS: URINE BILIRUBIN NEGATIVE (Negative); URINE BLOOD 2+ (Negative); URINE CLARITY SL CLOUDY; URINE COLOR YELLOW; URINE GLUCOSE-RANDOM* NEGATIVE (Negative); URINE KETONES NEGATIVE (Negative); URINE NITRITE-REFLEX NEGATIVE (Negative); URINE PROTEIN (DIPSTICK) TRACE (Negative); URINE SPECIFIC GRAVITY <= 1.005 (1.005-1.035); URINE UROBILINOGEN 0.2 E.U./dl (0.2-1.0)
[2019-03-04 17:04] LABS: URINE LEUKOCYTES-REFLEX 3+ (Negative)
[2019-03-04 17:11] LABS: SQUAMOUS 0-3 Few /LPF (0-3); URINE WBC-REFLEX >25 Many /HPF (0-5)
[2019-03-04 17:12] LABS: AMORPHOUS URATES Few /LPF (None Seen); BACTERIA-REFLEX 1-9 Few /HPF (None Seen); CASTS None Seen /LPF (None Seen); URINE RBC 0-2 Rare /HPF (0-2)
[2019-03-04 17:59] VITALS: BP 101/59
== END 2019-03-04 17:45 | disposition home or self-care (01) ==
LOC: ER 14:21
PROVIDERS: Physician Assistant
DX: T83.098A Other mechanical complication of other urinary catheter, initial encounter (principal); E86.0 Dehydration; I95.9 Hypotension, unspecified; I48.91 Unspecified atrial fibrillation; I11.0 Hypertensive heart disease with heart failure; I50.9 Heart failure, unspecified; J44.9 Chronic obstructive pulmonary disease, unspecified; F32.9 Major depressive disorder, single episode, unspecified; I25.2 Old myocardial infarction; F41.9 Anxiety disorder, unspecified; E03.9 Hypothyroidism, unspecified; E78.5 Hyperlipidemia, unspecified; Z86.2 Personal history of diseases of the blood and blood-forming organs and certain disorders involving the immune mechanism; Z86.73 Personal history of transient ischemic attack (TIA), and cerebral infarction without residual deficits; Z95.1 Presence of aortocoronary bypass graft; Z90.49 Acquired absence of other specified parts of digestive tract; Z79.4 Long term (current) use of insulin; Z88.0 Allergy status to penicillin; Z91.018 Allergy to other foods; Z87.891 Personal history of nicotine dependence

== ENCOUNTER → 2019-03-25 | Outpatient (CLI) | payer OTHER | LOC: HYPER | DX: E11.622 Type 2 diabetes mellitus with other skin ulcer (principal); L97.221 Non-pressure chronic ulcer of left calf limited to breakdown of skin; L97.811 Non-pressure chronic ulcer of other part of right lower leg limited to breakdown of skin; E11.51 Type 2 diabetes mellitus with diabetic peripheral angiopathy without gangrene; L03.116 Cellulitis of left lower limb; I10 Essential (primary) hypertension; I25.10 Atherosclerotic heart disease of native coronary artery without angina pectoris; I48.0 Paroxysmal atrial fibrillation; E78.5 Hyperlipidemia, unspecified; D64.9 Anemia, unspecified; R60.0 Localized edema; F41.1 Generalized anxiety disorder; F33.9 Major depressive disorder, recurrent, unspecified; Z79.82 Long term (current) use of aspirin; Z86.73 Personal history of transient ischemic attack (TIA), and cerebral infarction without residual deficits; Z79.4 Long term (current) use of insulin; Z79.84 Long term (current) use of oral hypoglycemic drugs ==

== ENCOUNTER → 2019-04-08 | Outpatient (CLI) | payer OTHER | LOC: HYPER 12:31 | DX: E11.622 Type 2 diabetes mellitus with other skin ulcer (principal); L97.828 Non-pressure chronic ulcer of other part of left lower leg with other specified severity; L03.116 Cellulitis of left lower limb; E11.51 Type 2 diabetes mellitus with diabetic peripheral angiopathy without gangrene; E78.5 Hyperlipidemia, unspecified; E07.89 Other specified disorders of thyroid; I10 Essential (primary) hypertension; I25.10 Atherosclerotic heart disease of native coronary artery without angina pectoris; R60.0 Localized edema; I48.0 Paroxysmal atrial fibrillation; F41.1 Generalized anxiety disorder; F33.9 Major depressive disorder, recurrent, unspecified; Z79.82 Long term (current) use of aspirin; Z79.4 Long term (current) use of insulin; Z79.84 Long term (current) use of oral hypoglycemic drugs; Z86.73 Personal history of transient ischemic attack (TIA), and cerebral infarction without residual deficits ==

== ENCOUNTER → 2019-04-22 | Outpatient (CLI) | payer OTHER | LOC: HYPER 16:35 | DX: L03.116 Cellulitis of left lower limb (principal); E11.51 Type 2 diabetes mellitus with diabetic peripheral angiopathy without gangrene; I10 Essential (primary) hypertension; I25.10 Atherosclerotic heart disease of native coronary artery without angina pectoris; I48.0 Paroxysmal atrial fibrillation; L84 Corns and callosities; E78.5 Hyperlipidemia, unspecified; D64.9 Anemia, unspecified; R60.0 Localized edema; F41.1 Generalized anxiety disorder; F33.9 Major depressive disorder, recurrent, unspecified; Z79.82 Long term (current) use of aspirin; Z79.4 Long term (current) use of insulin; Z79.84 Long term (current) use of oral hypoglycemic drugs; Z86.73 Personal history of transient ischemic attack (TIA), and cerebral infarction without residual deficits ==

== ENCOUNTER → 2019-04-22 | Outpatient (CLI) | payer OTHER | LOC: ULTRA 08:13 | DX: I82.411 Acute embolism and thrombosis of right femoral vein (principal); E11.628 Type 2 diabetes mellitus with other skin complications; E11.51 Type 2 diabetes mellitus with diabetic peripheral angiopathy without gangrene; L03.116 Cellulitis of left lower limb ==

== ENCOUNTER 2019-05-04 16:47 | Emergency (ER) | payer OTHER ==
[~2019-05-04] VITALS: Ht 152.4 cm; Wt 77.1 kg
[2019-05-04] MEDS ORDERED: LEVO-T100 MCG PO (18:04)
[2019-05-04] MEDS ORDERED: TORSEMIDE20 MG PO (18:05)
[2019-05-04] MEDS ORDERED: GLIPIZIDE 10 MG10 MG PO (18:05)
[2019-05-04] MEDS ORDERED: FLOMAX0.4 MG PO (18:06)
[2019-05-04] MEDS ORDERED: XARELTO1 EACH PO (18:08)
[2019-05-04 18:31] LABS: ABSOLUTE NEUTROPHILS 4.3 thou/uL (1.4-8.2); BASOPHILS 0.3 % (0.0-2.0); EOSINOPHILS 7.7 % (0.0-3.0); HEMATOCRIT 33.9 % (37.0-47.0); HEMOGLOBIN 10.9 gm/dL (12.0-15.0); LYMPHOCYTES 17.8 % (24.0-44.0); MCH 29.7 pg (26.0-34.0); MCV 92.7 fL (80.0-100.0); MONOCYTES 6.1 % (1.0-8.0); PLATELET COUNT 202 thou/uL (150-400); POLYS 68.1 % (36.0-66.0); RBC 3.66 mil/uL (4.20-5.00); RDW 17.6 % (10.5-14.5); WBC 6.3 thou/uL (4.0-11.0)
[2019-05-04 18:39] LABS: CALCIUM 9.5 mg/dL (8.5-10.1); CREATININE 1.3 mg/dL (0.6-1.0); POTASSIUM 3.5 mmol/L (3.5-5.1)
[2019-05-04 18:44] LABS: INR 1.5; PROTIME 15.4 Seconds (9.3-11.4)
[2019-05-04 18:47] LABS: TOTAL BILIRUBIN 0.7 mg/dL (<0.1-1.0); TOTAL PROTEIN 8.4 g/dL (6.4-8.2)
[2019-05-04] MEDS ORDERED: KEFLEX500 M1 PO ×3 (20:25→20:34)
[2019-05-04] MEDS ORDERED: NORCO 5-325 TA1 EAC1 PO (20:25)
[2019-05-04 20:43] VITALS: BP 118/65
== END 2019-05-04 20:44 | disposition home or self-care (01) ==
LOC: ER 16:47
PROVIDERS: Physician Assistant
DX: R04.0 Epistaxis (principal); J44.9 Chronic obstructive pulmonary disease, unspecified; I11.0 Hypertensive heart disease with heart failure; I50.9 Heart failure, unspecified; I48.91 Unspecified atrial fibrillation; I25.2 Old myocardial infarction; E78.5 Hyperlipidemia, unspecified; E03.9 Hypothyroidism, unspecified; Z79.01 Long term (current) use of anticoagulants; Z87.891 Personal history of nicotine dependence; Z95.1 Presence of aortocoronary bypass graft; Z88.0 Allergy status to penicillin; Z88.8 Allergy status to other drugs, medicaments and biological substances; Z79.899 Other long term (current) drug therapy; Z86.73 Personal history of transient ischemic attack (TIA), and cerebral infarction without residual deficits

== ENCOUNTER → 2019-08-20 | Outpatient (CLI) | payer OTHER ==
[~2019-08-20] MED LIST changes: +FLOMAX0.4 MG PO; +GLIPIZIDE 10 MG10 MG PO; +KEFLEX500 M1 PO; +LEVO-T100 MCG PO; +TORSEMIDE20 MG PO; +XARELTO1 EACH PO
== END ==
LOC: ULTRA 07-31 19:01
DX: I82.411 Acute embolism and thrombosis of right femoral vein (principal); M79.89 Other specified soft tissue disorders; M79.605 Pain in left leg

== ENCOUNTER → 2019-11-20 | Outpatient (CLI) | payer OTHER | LOC: MRI 11-12 09:27 | PROVIDERS: ATTEND Physical Medicine & Rehabilitation Sports Medicine | DX: M51.27 Other intervertebral disc displacement, lumbosacral region (principal); M48.07 Spinal stenosis, lumbosacral region; M47.817 Spondylosis without myelopathy or radiculopathy, lumbosacral region; M25.78 Osteophyte, vertebrae; M51.36 Other intervertebral disc degeneration, lumbar region ==

== ENCOUNTER → 2019-12-24 | Outpatient (CLI) | payer OTHER | LOC: ULTRA 15:00 | PROVIDERS: ATTEND Nurse Practitioner | DX: M79.604 Pain in right leg (principal) ==

== ENCOUNTER → 2020-01-11 | Outpatient (CLI) | payer OTHER | LOC: SJCVCIMAG 08:20 | PROVIDERS: ATTEND Internal Medicine Cardiovascular Disease | DX: I08.3 Combined rheumatic disorders of mitral, aortic and tricuspid valves (principal); R94.31 Abnormal electrocardiogram [ECG] [EKG]; I11.0 Hypertensive heart disease with heart failure; I50.22 Chronic systolic (congestive) heart failure; E11.9 Type 2 diabetes mellitus without complications; I25.812 Atherosclerosis of bypass graft of coronary artery of transplanted heart without angina pectoris; E78.00 Pure hypercholesterolemia, unspecified; I25.2 Old myocardial infarction; Z95.1 Presence of aortocoronary bypass graft; Z79.899 Other long term (current) drug therapy; Z87.891 Personal history of nicotine dependence ==

== ENCOUNTER 2020-01-15 12:04 | Emergency (ER) | payer OTHER ==
[~2020-01-15] VITALS: Ht 152.4 cm; Wt 77.1 kg
[2020-01-15 15:20] VITALS: BP 111/79
== END 2020-01-15 15:20 | disposition home or self-care (01) ==
LOC: ER 12:04
DX: S00.83XA Contusion of other part of head, initial encounter (principal); I11.0 Hypertensive heart disease with heart failure; I50.9 Heart failure, unspecified; I48.91 Unspecified atrial fibrillation; I25.2 Old myocardial infarction; I25.10 Atherosclerotic heart disease of native coronary artery without angina pectoris; E11.9 Type 2 diabetes mellitus without complications; E03.9 Hypothyroidism, unspecified; Z87.891 Personal history of nicotine dependence; Z88.0 Allergy status to penicillin; Z79.899 Other long term (current) drug therapy; Z95.1 Presence of aortocoronary bypass graft; Z86.73 Personal history of transient ischemic attack (TIA), and cerebral infarction without residual deficits; W01.0XXA Fall on same level from slipping, tripping and stumbling without subsequent striking against object, initial encounter; Y93.89 Activity, other specified; Y92.89 Other specified places as the place of occurrence of the external cause; Y99.9 Unspecified external cause status

== ENCOUNTER → 2020-02-02 | Outpatient (CLI) | payer OTHER ==
[2020-02-02 10:39] LABS: CREATININE 1.4 mg/dL (0.6-1.0)
== END ==
LOC: MRI 09:04
PROVIDERS: ATTEND Nurse Practitioner
DX: M50.21 Other cervical disc displacement, high cervical region (principal); M53.82 Other specified dorsopathies, cervical region; M48.02 Spinal stenosis, cervical region; M43.02 Spondylolysis, cervical region

== ENCOUNTER → 2020-03-08 | Outpatient (CLI) | payer OTHER | LOC: HYPER 09:26 | PROVIDERS: ATTEND Emergency Medicine | DX: E11.622 Type 2 diabetes mellitus with other skin ulcer (principal); L97.821 Non-pressure chronic ulcer of other part of left lower leg limited to breakdown of skin; E11.51 Type 2 diabetes mellitus with diabetic peripheral angiopathy without gangrene; L03.115 Cellulitis of right lower limb; L03.116 Cellulitis of left lower limb; R60.0 Localized edema; I10 Essential (primary) hypertension; E78.5 Hyperlipidemia, unspecified; I25.10 Atherosclerotic heart disease of native coronary artery without angina pectoris; Z86.73 Personal history of transient ischemic attack (TIA), and cerebral infarction without residual deficits; Z86.718 Personal history of other venous thrombosis and embolism; Z95.1 Presence of aortocoronary bypass graft; Z90.49 Acquired absence of other specified parts of digestive tract; Z95.828 Presence of other vascular implants and grafts; Z79.01 Long term (current) use of anticoagulants; Z79.82 Long term (current) use of aspirin ==

== ENCOUNTER → 2020-03-09 | Outpatient (CLI) | payer OTHER | LOC: SJCVCIMAG 13:01 | PROVIDERS: ATTEND Internal Medicine Cardiovascular Disease | DX: I73.9 Peripheral vascular disease, unspecified (principal); E11.65 Type 2 diabetes mellitus with hyperglycemia; L97.818 Non-pressure chronic ulcer of other part of right lower leg with other specified severity; L97.828 Non-pressure chronic ulcer of other part of left lower leg with other specified severity; Z78.0 Asymptomatic menopausal state; Z95.820 Peripheral vascular angioplasty status with implants and grafts; Z87.891 Personal history of nicotine dependence ==

== ENCOUNTER → 2020-03-16 | Outpatient (CLI) | payer OTHER | LOC: HYPER 15:36 | PROVIDERS: ATTEND Emergency Medicine | DX: E11.622 Type 2 diabetes mellitus with other skin ulcer (principal); L97.821 Non-pressure chronic ulcer of other part of left lower leg limited to breakdown of skin; E11.51 Type 2 diabetes mellitus with diabetic peripheral angiopathy without gangrene; R60.0 Localized edema; E78.5 Hyperlipidemia, unspecified; E07.89 Other specified disorders of thyroid; I10 Essential (primary) hypertension; I25.10 Atherosclerotic heart disease of native coronary artery without angina pectoris; Z86.73 Personal history of transient ischemic attack (TIA), and cerebral infarction without residual deficits; Z86.718 Personal history of other venous thrombosis and embolism ==

== ENCOUNTER → 2020-03-31 | Outpatient (CLI) | payer OTHER | LOC: HYPER 15:33 | PROVIDERS: ATTEND Emergency Medicine | DX: E11.622 Type 2 diabetes mellitus with other skin ulcer (principal); L97.821 Non-pressure chronic ulcer of other part of left lower leg limited to breakdown of skin; R60.0 Localized edema; E11.51 Type 2 diabetes mellitus with diabetic peripheral angiopathy without gangrene; E78.5 Hyperlipidemia, unspecified; E07.89 Other specified disorders of thyroid; I10 Essential (primary) hypertension; I25.10 Atherosclerotic heart disease of native coronary artery without angina pectoris; Z86.73 Personal history of transient ischemic attack (TIA), and cerebral infarction without residual deficits; Z86.718 Personal history of other venous thrombosis and embolism ==

== ENCOUNTER → 2020-05-09 | Outpatient (CLI) | payer OTHER ==
[2020-05-09 09:52] LABS: CREATININE 1.5 mg/dL (0.6-1.0)
== END ==
LOC: MRI 08:47
PROVIDERS: ATTEND Neurological Surgery
DX: M43.12 Spondylolisthesis, cervical region (principal); M47.812 Spondylosis without myelopathy or radiculopathy, cervical region; M48.02 Spinal stenosis, cervical region; D32.1 Benign neoplasm of spinal meninges

== ENCOUNTER → 2020-06-14 | Outpatient (CLI) | payer OTHER | LOC: ULTRA 10:10 | PROVIDERS: ATTEND Nurse Practitioner | DX: I82.411 Acute embolism and thrombosis of right femoral vein (principal); R22.41 Localized swelling, mass and lump, right lower limb ==

== ENCOUNTER → 2020-07-15 | Outpatient (CLI) | payer OTHER | LOC: SJCVC 09:53 | PROVIDERS: ATTEND Internal Medicine Cardiovascular Disease | DX: R94.31 Abnormal electrocardiogram [ECG] [EKG] (principal); I11.0 Hypertensive heart disease with heart failure; I50.22 Chronic systolic (congestive) heart failure; I34.0 Nonrheumatic mitral (valve) insufficiency; I25.810 Atherosclerosis of coronary artery bypass graft(s) without angina pectoris; E78.00 Pure hypercholesterolemia, unspecified; K02.9 Dental caries, unspecified; E11.9 Type 2 diabetes mellitus without complications; I27.20 Pulmonary hypertension, unspecified; E78.5 Hyperlipidemia, unspecified; I73.9 Peripheral vascular disease, unspecified; I25.2 Old myocardial infarction; R60.0 Localized edema; E03.9 Hypothyroidism, unspecified; I25.5 Ischemic cardiomyopathy; I44.7 Left bundle-branch block, unspecified; Z87.891 Personal history of nicotine dependence; Z79.82 Long term (current) use of aspirin; Z79.899 Other long term (current) drug therapy; Z95.1 Presence of aortocoronary bypass graft; Z86.74 Personal history of sudden cardiac arrest; Z88.0 Allergy status to penicillin ==

== ENCOUNTER → 2020-11-09 | Outpatient (CLI) | payer OTHER | LOC: SJCVCIMAG 10:45 | PROVIDERS: ATTEND Internal Medicine Cardiovascular Disease | DX: R00.0 Tachycardia, unspecified (principal); I49.3 Ventricular premature depolarization; I49.1 Atrial premature depolarization; I42.9 Cardiomyopathy, unspecified; I25.810 Atherosclerosis of coronary artery bypass graft(s) without angina pectoris; I34.0 Nonrheumatic mitral (valve) insufficiency; E78.00 Pure hypercholesterolemia, unspecified; I71.4 Abdominal aortic aneurysm, without rupture; I25.2 Old myocardial infarction; I11.0 Hypertensive heart disease with heart failure; I50.9 Heart failure, unspecified; E78.5 Hyperlipidemia, unspecified; E03.9 Hypothyroidism, unspecified; E11.51 Type 2 diabetes mellitus with diabetic peripheral angiopathy without gangrene; I73.9 Peripheral vascular disease, unspecified; Z90.49 Acquired absence of other specified parts of digestive tract; Z98.890 Other specified postprocedural states; Z95.1 Presence of aortocoronary bypass graft; Z79.82 Long term (current) use of aspirin; Z88.0 Allergy status to penicillin; Z79.899 Other long term (current) drug therapy; Z86.718 Personal history of other venous thrombosis and embolism; Z87.891 Personal history of nicotine dependence; Z82.49 Family history of ischemic heart disease and other diseases of the circulatory system ==

== ENCOUNTER 2021-01-29 08:28 | Emergency (ER) | payer OTHER ==
[~2021-01-29] VITALS: Ht 152.4 cm; Wt 67.1 kg
[2021-01-29 09:36] LABS: ABSOLUTE NEUTROPHILS 6.1 thou/uL (1.4-8.2); BASOPHILS 0.6 % (0.0-2.0); EOSINOPHILS 0.5 % (0.0-3.0); HEMOGLOBIN 12.5 gm/dL (12.0-15.0); LYMPHOCYTES 6.4 % (24.0-44.0); MCH 31.5 pg (26.0-34.0); MCHC 33.8 g/dL (28.0-37.0); MCV 93.3 fL (80.0-100.0); MONOCYTES 6.3 % (1.0-8.0); PLATELET COUNT 151 thou/uL (150-400); POLYS 86.2 % (36.0-66.0); RBC 3.97 mil/uL (4.20-5.00); RDW 13.3 % (10.5-14.5); WBC 7.1 thou/uL (4.0-11.0)
[2021-01-29 09:56] LABS: CALCIUM 9.1 mg/dL (8.5-10.1); POTASSIUM 3.6 mmol/L (3.5-5.1)
--- NOTE | 2021-01-29 13:01 | EKG ---
[address] [address] [place] [address] ELECTROCARDIOGRAM REPORT Name: FARRUKH REBOLLAR Room #: NILESH Cantu#: [id number] Admission: 01/29/21 Attend Phys: Discharge: Date of : 48 Report #: [id number] [facility] ED Test Date: 2021-01-29 Test Time: 09:37:23 Pat Name: FARRUKH REBOLLAR Department: Room: Gender: F Digital Media Buyer: ROSALBA : 1950 Requested By: Melina Ariza Order Number: [id number] MD: Rey Juarez Measurements Intervals [place] Rate: 73 P: -53 MA: 154 QRS: -6 QRSD: 118 T: 162 QT: 402 QTc: 443 Interpretive Statements Sinus or ectopic atrial rhythm Nonspecific ST and T wave abnormality Compared to ECG 12/15/2018 08:14:45 Sinus or ectopic atrial tachycardia is no longer present Electronically Signed On 01-29-2021 13:01:03 CDT by eRy Juarez [email or web address] <ELECTRONICALLY SIGNED> By: Rey Juarez MD, [facility] 01/29/21 1301 0937 6 Rey Juarez MD, FACC /EPI
[2021-01-29] MEDS ORDERED: VALACYCLOVIR500 MG PO (15:49)
[2021-01-29] MEDS ORDERED: NORCO5 PO (15:56)
[2021-01-29 16:05] VITALS: BP 123/65
== END 2021-01-29 16:05 | disposition home or self-care (01) ==
LOC: ER 08:28
PROVIDERS: Emergency Medicine
DX: B02.9 Zoster without complications (principal); Z20.822 Contact with and (suspected) exposure to COVID-19; J44.9 Chronic obstructive pulmonary disease, unspecified; I48.91 Unspecified atrial fibrillation; I11.0 Hypertensive heart disease with heart failure; I50.9 Heart failure, unspecified; I73.9 Peripheral vascular disease, unspecified; I25.2 Old myocardial infarction; I25.10 Atherosclerotic heart disease of native coronary artery without angina pectoris; F32.9 Major depressive disorder, single episode, unspecified; F41.9 Anxiety disorder, unspecified; E11.9 Type 2 diabetes mellitus without complications; E78.5 Hyperlipidemia, unspecified; E03.9 Hypothyroidism, unspecified; Z98.890 Other specified postprocedural states; Z95.1 Presence of aortocoronary bypass graft; Z87.891 Personal history of nicotine dependence; Z90.89 Acquired absence of other organs; Z79.891 Long term (current) use of opiate analgesic; Z79.899 Other long term (current) drug therapy; Z79.82 Long term (current) use of aspirin; Z79.1 Long term (current) use of non-steroidal anti-inflammatories (NSAID); Z88.0 Allergy status to penicillin; Z88.8 Allergy status to other drugs, medicaments and biological substances

== ENCOUNTER → 2021-03-21 | Outpatient (CLI) | payer OTHER ==
[~2021-03-21] MED LIST changes: +NORCO5 PO; +VALACYCLOVIR500 MG PO
== END ==
LOC: HYPER 03-16 07:27
PROVIDERS: ATTEND Emergency Medicine
DX: S81.811A Laceration without foreign body, right lower leg, initial encounter (principal); E11.622 Type 2 diabetes mellitus with other skin ulcer; L98.492 Non-pressure chronic ulcer of skin of other sites with fat layer exposed; S01.80XA Unspecified open wound of other part of head, initial encounter; B02.8 Zoster with other complications; E11.51 Type 2 diabetes mellitus with diabetic peripheral angiopathy without gangrene; E78.5 Hyperlipidemia, unspecified; E07.89 Other specified disorders of thyroid; G89.29 Other chronic pain; I10 Essential (primary) hypertension; I25.10 Atherosclerotic heart disease of native coronary artery without angina pectoris; F41.9 Anxiety disorder, unspecified; Z86.73 Personal history of transient ischemic attack (TIA), and cerebral infarction without residual deficits; Z86.718 Personal history of other venous thrombosis and embolism; Z95.1 Presence of aortocoronary bypass graft; Z90.49 Acquired absence of other specified parts of digestive tract; Z95.828 Presence of other vascular implants and grafts; Z87.891 Personal history of nicotine dependence; X58.XXXA Exposure to other specified factors, initial encounter; Y93.89 Activity, other specified; Y92.89 Other specified places as the place of occurrence of the external cause; Y99.8 Other external cause status

== ENCOUNTER → 2021-03-30 | Outpatient (CLI) | payer OTHER | LOC: HYPER 09:20 | PROVIDERS: ATTEND Emergency Medicine | DX: S81.811D Laceration without foreign body, right lower leg, subsequent encounter (principal); E11.622 Type 2 diabetes mellitus with other skin ulcer; L97.821 Non-pressure chronic ulcer of other part of left lower leg limited to breakdown of skin; L98.492 Non-pressure chronic ulcer of skin of other sites with fat layer exposed; S01.80XD Unspecified open wound of other part of head, subsequent encounter; E11.628 Type 2 diabetes mellitus with other skin complications; B02.8 Zoster with other complications; G89.29 Other chronic pain; E11.51 Type 2 diabetes mellitus with diabetic peripheral angiopathy without gangrene; I10 Essential (primary) hypertension; E78.5 Hyperlipidemia, unspecified; I25.10 Atherosclerotic heart disease of native coronary artery without angina pectoris; Z86.73 Personal history of transient ischemic attack (TIA), and cerebral infarction without residual deficits; Z86.718 Personal history of other venous thrombosis and embolism; Z87.891 Personal history of nicotine dependence; Z79.82 Long term (current) use of aspirin; Z79.899 Other long term (current) drug therapy; X58.XXXD Exposure to other specified factors, subsequent encounter ==

== ENCOUNTER → 2021-05-23 | Outpatient (CLI) | payer OTHER | LOC: SJCVC 11:46 | PROVIDERS: ATTEND Internal Medicine Cardiovascular Disease | DX: R94.31 Abnormal electrocardiogram [ECG] [EKG] (principal); I44.7 Left bundle-branch block, unspecified; I11.0 Hypertensive heart disease with heart failure; I50.9 Heart failure, unspecified; I25.810 Atherosclerosis of coronary artery bypass graft(s) without angina pectoris; E78.00 Pure hypercholesterolemia, unspecified; I34.0 Nonrheumatic mitral (valve) insufficiency; R60.9 Edema, unspecified; E78.5 Hyperlipidemia, unspecified; E11.9 Type 2 diabetes mellitus without complications; E03.9 Hypothyroidism, unspecified; I25.5 Ischemic cardiomyopathy; Z95.1 Presence of aortocoronary bypass graft; Z88.0 Allergy status to penicillin; Z79.82 Long term (current) use of aspirin; Z79.899 Other long term (current) drug therapy; Z87.891 Personal history of nicotine dependence ==

== ENCOUNTER → 2021-05-30 | Outpatient (CLI) | payer OTHER | LOC: HYPER 13:29 | PROVIDERS: ATTEND Emergency Medicine | DX: E11.622 Type 2 diabetes mellitus with other skin ulcer (principal); L97.821 Non-pressure chronic ulcer of other part of left lower leg limited to breakdown of skin; S81.811D Laceration without foreign body, right lower leg, subsequent encounter; L98.492 Non-pressure chronic ulcer of skin of other sites with fat layer exposed; I87.2 Venous insufficiency (chronic) (peripheral); B02.8 Zoster with other complications; E11.51 Type 2 diabetes mellitus with diabetic peripheral angiopathy without gangrene; G89.29 Other chronic pain; R60.0 Localized edema; I10 Essential (primary) hypertension; E78.5 Hyperlipidemia, unspecified; I25.10 Atherosclerotic heart disease of native coronary artery without angina pectoris; F41.9 Anxiety disorder, unspecified; Z86.73 Personal history of transient ischemic attack (TIA), and cerebral infarction without residual deficits; Z86.718 Personal history of other venous thrombosis and embolism; Z87.891 Personal history of nicotine dependence; Z79.01 Long term (current) use of anticoagulants; Z79.82 Long term (current) use of aspirin; Z79.899 Other long term (current) drug therapy; X58.XXXD Exposure to other specified factors, subsequent encounter ==

== ENCOUNTER → 2021-07-26 | Outpatient (CLI) | payer OTHER | LOC: HYPER 11:10 | PROVIDERS: ATTEND Emergency Medicine | DX: L97.822 Non-pressure chronic ulcer of other part of left lower leg with fat layer exposed (principal); S81.811D Laceration without foreign body, right lower leg, subsequent encounter; L98.492 Non-pressure chronic ulcer of skin of other sites with fat layer exposed; I87.2 Venous insufficiency (chronic) (peripheral); E11.51 Type 2 diabetes mellitus with diabetic peripheral angiopathy without gangrene; E11.628 Type 2 diabetes mellitus with other skin complications; R60.0 Localized edema; G89.29 Other chronic pain; I10 Essential (primary) hypertension; E78.5 Hyperlipidemia, unspecified; I25.10 Atherosclerotic heart disease of native coronary artery without angina pectoris; F41.9 Anxiety disorder, unspecified; Z86.73 Personal history of transient ischemic attack (TIA), and cerebral infarction without residual deficits; Z86.718 Personal history of other venous thrombosis and embolism; Z87.891 Personal history of nicotine dependence; Z79.82 Long term (current) use of aspirin; Z79.01 Long term (current) use of anticoagulants; Z79.899 Other long term (current) drug therapy; X58.XXXD Exposure to other specified factors, subsequent encounter ==